=== PATIENT | female | born 1985 | race Caucasian/White ===

== ENCOUNTER 2019-06-23 09:50 | Emergency (ER) | payer OTHER, SELFPAY ==
--- NOTE | 2019-06-23 10:29 | ER ---
Nurse's Notes [facility] Name: Thea Fernández Age: 33 yrs Sex: Female : 1985 Arrival Date: 06/23/2019 Time: 09:52 Bed 13 Private MD: Diagnosis: Conjunctivitis Presentation: 06/23 10:23 Presenting complaint: Patient states: Patient states that her eyes starting swelling vc yesterday. When she woke up this morning both eyes were swollen shut and had dried drainage sealing both eyes closed. Transition of care: patient was not received from another setting of care. Onset of symptoms was June 22, 2019. Risk Assessment: Do you want to hurt yourself or someone else? Patient reports no desire to harm self or others. Initial Sepsis Screen: Does the patient meet any 2 criteria? No. Patient's initial sepsis screen is negative. Does the patient have a suspected source of infection? No. Patient's initial sepsis screen is negative. Care prior to arrival: Medication(s) given: Patient took benedryl and applied ice packs to eyes. 10:23 Acuity: JOSE 5 vc 10:23 Method Of Arrival: Ambulatory vc Triage Assessment: 10:20 General: Appears in no apparent distress. uncomfortable, Behavior is calm, cooperative. vc Pain: Complains of pain in behind right eye and behind left eye. 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 - Social history:: Smoking status: Patient/guardian denies using tobacco, never smoked. - Ebola Screening: : No symptoms or risks identified at this time. Screenin:20 Abuse screen: Denies threats or abuse. Nutritional screening: No deficits noted. vc Tuberculosis screening: No symptoms or risk factors identified. Fall Risk None identified. Assessment: 10:20 General: Appears in no apparent distress. uncomfortable. Pain: Complains of pain in vc right eye and left eye. Neuro: Level of Consciousness is awake, alert, obeys commands, Oriented to person, place, time. Cardiovascular: Capillary refill < 3 seconds Patient's skin is warm and dry. Respiratory: Respiratory effort is even, unlabored. GI: No signs and/or symptoms were reported involving the gastrointestinal system. : No deficits noted. EENT: Eyes are tearing on right eye and left eye with exudate noted from outer aspect of conjuctiva of left eye and outer aspect of conjuctiva of right eye Sclera/Cornea are reddened in right eye and left eye Lid(s) swollen. Derm: Skin is intact, is healthy with good turgor. Musculoskeletal: Range of motion: intact in all extremities. Vital Signs: 10:21 BP 146 / 93; Pulse 81; Resp 16; Temp 98.7(O); Pulse Ox 100% on R/A; Weight 58.97 kg; vc Height 5 ft. (152.40 cm); Pain 5/10; 10:21 Body Mass Index 25.39 (58.97 kg, 152.40 cm) vc ED Course: 09:52 Patient arrived in ED. as 09:56 Nancy Frank RN is Primary Nurse. vc 09:57 Giancarlo Iglesias FNP-C is PHCP. la1 09:57 Jaime Parnell MD is Attending Physician. la1 09:57 Giancarlo Iglesias FNP-C is PHCP. la1 09:57 Jaime Parnell MD is Attending Physician. la1 10:20 Arm band placed on. vc 10:21 Patient has correct armband on for positive identification. Bed in low position. Call vc light in reach. Side rails up X 1. 10:26 Triage completed. vc 10:45 No provider procedures requiring assistance completed. Patient did not have IV access vc during this emergency room visit. Administered Medications: No medications were administered Outcome: 10:28 Discharge ordered by . la1 10:48 Discharged to home ambulatory. vc 10:48 Condition: good 10:48 Discharge instructions given to patient, Instructed on discharge instructions, medication usage, Demonstrated understanding of instructions, follow-up care, medications, Prescriptions given X 1. 10:49 Patient left the ED. vc Signatures: Madelyn Mascorro as Giancarlo Iglesias FNP-C CARDROOM ATTENDANT-Cla1 Nancy Frank RN RN vc Corrections: (The following items were deleted from the chart) 10:54 10:00 General: Appears in no apparent distress. uncomfortable, Behavior is calm, vc cooperative, vc 10: 10:00 Pain: Complains of pain in behind right eye and behind left eye vc vc 10:54 10:53 Arm band placed on vc vc
--- NOTE | 2019-06-23 10:30 | EDPHYS ---
Physician Documentation [facility] Name: Thea Fernández Age: 33 yrs Sex: Female : 1985 Arrival Date: 06/23/2019 Time: 09:52 Bed 13 Private MD: ED Physician Jaime Parnell HPI: 06/23 10:20 This 33 yrs old Female presents to ER via Unassigned with complaints of la1 Drainage From Eye, Eye Swelling. 10:20 The patient is experiencing matting or discharge, redness, to both eyes. Onset: The la1 symptoms/episode began/occurred this morning. Duration: the symptoms are continuous. Aggravated by blinking, Alleviated by cold application, medications. Associated signs and symptoms: Pertinent negatives: chills, ear ache, fever. Associated signs and symptoms: Pertinent positives: headache, runny nose. Patient does not utilize any form of vision correction. Severity of symptoms: At their worst the symptoms were moderate this morning. The patient has experienced similar episodes in the past, a few times. pt reports that she woke up this morning with MAXIMO eyelid swelling, eye redness, has been taking benadryl at home and applying cold compresses, pt states that her swelling has significantly decreased since she woke up this morning, denies pain with EOM, visual acuity intact. . 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 - Social history:: Smoking status: Patient/guardian denies using tobacco, never smoked. - Ebola Screening: : No symptoms or risks identified at this time. ROS: 10:23 Constitutional: Negative for fever, chills, and weight loss, ENT: + for rhinorrhea la1 Neck: Negative for injury, pain, and swelling, Cardiovascular: Negative for chest pain, palpitations, and edema, Respiratory: Negative for shortness of breath, cough, wheezing, and pleuritic chest pain, Abdomen/GI: Negative for abdominal pain, nausea, vomiting, diarrhea, and constipation, Back: Negative for injury and pain, : Negative for injury, bleeding, discharge, and swelling, MS/Extremity: Negative for injury and deformity, Neuro: Negative for headache, weakness, numbness, tingling, and seizure, Psych: Negative for depression, anxiety, suicide ideation, homicidal ideation, and hallucinations. 10:23 Eyes: Positive for itching, matting, redness, tearing, of the outer aspect of conjuctiva of right eye, inner aspect of conjuctiva of right eye, outer aspect of conjuctiva of left eye and inner aspect of conjunctiva of left eye. Exam: 10:24 Visual Acuity: I have reviewed the nursing documentation. la1 10:24 Constitutional: This is a well developed, well nourished patient who is awake, alert, and in no acute distress. Head/Face: Normocephalic, atraumatic. 10:24 Neck: Trachea midline, no thyromegaly or masses palpated, and no cervical lymphadenopathy. Supple, full range of motion without nuchal rigidity, or vertebral point tenderness. No Meningismus. Chest/axilla: Normal chest wall appearance and motion. Nontender with no deformity. No lesions are appreciated. Cardiovascular: Regular rate and rhythm with a normal S1 and S2. No gallops, murmurs, or rubs. Normal PMI, no JVD. No pulse deficits. Respiratory: Lungs have equal breath sounds bilaterally, clear to auscultation No rales, rhonchi or wheezes noted. No increased work of breathing, no retractions or nasal flaring. Abdomen/GI: Soft, non-tender, with normal bowel sounds. No distension or tympany. No guarding or rebound. No evidence of tenderness throughout. Neuro: Awake and alert, GCS 15, oriented to person, place, time, and situation. Normal gait. 10:24 Eyes: Periorbital structures: appear normal, no cellulitis, no ecchymosis, no erythema, no swelling, Pupils: equal, round, and reactive to light and accomodation, Extraocular movements: intact throughout, Conjunctiva: chemosis, injected, bilaterally, Corneas: are normal, Lids and lashes: appear normal, bilaterally, Visual sykes: are intact. 10:24 ENT: TM's: are normal, no evidence of bulging, no dullness, no erythema, no fluid levels, no hemotympanum, no rupture, normal bony landmarks, Mouth: is normal, Posterior pharynx: Airway: normal, Tonsils: are normal in appearance, no enlargement, no erythema, no exudate, Uvula: normal, midline. Vital Signs: 10:21 BP 146 / 93; Pulse 81; Resp 16; Temp 98.7(O); Pulse Ox 100% on R/A; Weight 58.97 kg; vc Height 5 ft. (152.40 cm); Pain 5/10; 10:21 Body Mass Index 25.39 (58.97 kg, 152.40 cm) vc MDM: 09:59 Patient medically screened. la1 10:25 Data reviewed: vital signs, nurses notes, and as a result, I will discharge patient. la1 Data interpreted: Pulse oximetry: on room air is 99 %. Interpretation: normal. Test interpretation: by ED physician or midlevel provider:. Counseling: I had a detailed discussion with the patient and/or guardian regarding: the historical points, exam findings, and any diagnostic results supporting the discharge/admit diagnosis, the need for outpatient follow up, an opthalmologist, to return to the emergency department if symptoms worsen or persist or if there are any questions or concerns that arise at home. ED course: EOMs intact and not painful, no preseptal or cellulitis, no fever, pt is non-toxic in appearance, suspect allergic source but with matting and drainage will cover with abx. Pt instructed to return to ED with worsening of symptoms in the next 24 hours. . 06/23 10:20 Order name: Visual Acuity; Complete Time: 10:51 la1 Administered Medications: No medications were administered Disposition: 06/23/19 10:28 Discharged to Home. Impression: Conjunctivitis. - Condition is Stable. - Discharge Instructions: Allergic Conjunctivitis, Adult, Bacterial Conjunctivitis, Viral Conjunctivitis. - Prescriptions for Polytrim 10,000 unit- 1 mg/mL Ophthalmic drops - instill 1 drop by OPHTHALMIC route every 4 hours for 7 days To both eyes; 1 Container. - Medication Reconciliation Form, Thank You Letter, Antibiotic Education, Work release form form. - Follow up: Private Physician; When: 2 - 3 days; Reason: Recheck today's complaints, Re-evaluation by your physician. Follow up: Emergency Department; When: As needed; Reason: Fever > 102 F, Worsening of condition. - Problem is new. - Symptoms have improved. Addendum: 06/24/2019 20:51 Co-signature as Attending Physician, Jaime Parnell MD I agree with the assessment and virtua voorhees plan of care. Signatures: Jaime Parnell MD MD kdr Giancarlo Iglesias, PRINT SUPPORT SPECIALIST-C PRINT SUPPORT SPECIALIST-Cla1 Nancy Frank, RN RN vc Corrections: (The following items were deleted from the chart) 06/23 10:49 10:28 06/23/2019 10:28 Discharged to Home. Impression: Conjunctivitis. Condition is vc Stable. Forms are Medication Reconciliation Form, Thank You Letter, Antibiotic Education, Prescription Opioid Use. Follow up: Private Physician; When: 2 - 3 days; Reason: Recheck today's complaints, Re-evaluation by your physician. Follow up: Emergency Department; When: As needed; Reason: Fever > 102 F, Worsening of condition. Problem is new. Symptoms have improved. la1
== END 2019-06-23 10:49 | disposition home or self-care (01) ==
LOC: ER 09:50
DX: H10.9 Unspecified conjunctivitis (principal); Z88.1 Allergy status to other antibiotic agents
CPT/HCPCS: 99282

== ENCOUNTER 2023-07-25 18:01 | Inpatient (IN) | payer SELFPAY ==
[2023-07-25 20:22] LABS: Specific Gravity 1.022 (1.005-1.030)
[2023-07-25 20:25] LABS: Specific Gravity 1.022 (1.005-1.030); Urine Bacteria None Seen /HPF (<20); Urine Bilirubin NEGATIVE (Negative); Urine Blood Negative (Negative); Urine Clarity Extremely Turbid (Clear); Urine Color Yellow (Yellow); Urine Glucose NEGATIVE (Negative); Urine Mucus 3+ /HPF (None Seen); Urine Protein 1+ (Negative); Urine RBC <5 /HPF (None Seen); Urine Urobilinogen Normal (Normal); Urine pH 5.5 (5.0-7.0)
[2023-07-25 20:32] LABS: Absolute Lymphocytes (CBC) 0.5 K/uL (0.7-4.9); Lymphocytes % 2.5 % (15.3-44.8); MCV 83.1 fL (80-100); Platelets 204 thou/uL (152-406); RBC Red Blood Cell Count 5.17 M/uL (3.86-4.86)
[2023-07-25 20:42] LABS: Albumin 4.4 g/dL (3.4-5.0); Bilirubin Total 0.4 mg/dL (0.2-1.0); Potassium 3.7 mEq/L (3.5-5.1); Protein, Total 9.3 g/dL (6.4-8.2)
[2023-07-25] MEDS ORDERED: ONDANSETRON 4 MG/2 ML VIAL ONE (21:02)
[2023-07-25] MEDS ORDERED: NA CHLORIDE 0.9% 1,000 ML ONE ×2 (21:02→21:51)
[2023-07-25 21:09] LABS: Platelet Estimate ADEQ; White Blood Cell Scan OK (OK)
[2023-07-25 21:10] LABS: Blood Morphology Comment NOT SEEN (NOT SEEN)
--- NOTE | 2023-07-25 21:38 | RAD REPORT ---
EXAM DESCRIPTION: CT - Abdomen Pelvis W Contrast - 07/25/2023 8:46 pm CLINICAL HISTORY: ABD PAIN COMPARISON: No comparisons TECHNIQUE: Thin cut axial CT imaging of the abdomen and pelvis was performed following intravenous a dministration of 95 mL Isovue 300. Multiplanar reformats were generated and reviewed. All CT scans are performed using dose optimization technique as appropriate and may include automated exposure control or mA/KV adjustment according to patient size. FINDINGS: No suspicious findings in the lung bases. The liver demonstrates a hyperenhancing, ovoid, subcapsular 2.3 x 1.9 cm mass with central hypoenhanc ement. A lobulated left liver lobe well-circumscribed fluid density 1.7 cm cyst is also noted. Adrena l glands, spleen, and pancreas show no suspicious findings. Gallbladder and biliary tree are also wit hout suspicious finding. Symmetric renal function is seen with no hydronephrosis or suspicious renal mass. Left upper pole cor tical 1 cm fluid density cyst. 4 mm right lower renal pole nonobstructing calculus. No dilated bowel loops or bowel wall thickening. Appendix is unremarkable. Nonspecific fluid opacific ation throughout some of the small bowel loops and the ascending colon. No free air, free fluid or in flammatory stranding. No hernia, mass or bulky lymphadenopathy. Retroverted uterus. The urinary bladd er is suboptimally distended limiting evaluation. . No suspicious bony findings. IMPRESSION: Nonobstructing right lower renal pole 4 mm calculus. Nonspecific fluid opacification within some loops of distal small bowel and the ascending colon, find ings which may relate to diarrheal state. Incidental note made of a 2.3 cm hepatic dome hyperenhancing ovoid lesion, not well characterized on this single-phase exam. Additional characterization by hepatic mass protocol would be helpful, if cli nically indicated. Other incidental findings as above.
--- NOTE | 2023-07-25 21:47 | EDPHYS ---
Physician Documentation [facility] Name: Thea Fernández Age: 37 yrs Sex: Female : 1985 Arrival Date: 07/25/2023 Time: 18:01 Bed 6 Private MD: ED Physician Jesus Manuel Amaro HPI: 07/25 19:24 This 37 yrs old Female presents to ER via Ambulatory with complaints of ec2 Nausea/Vomiting/Diarrhea, Abdominal Pain. 19:24 Patient arrives today due to concern for nausea, vomiting, diarrhea. States that she ec2 been having symptoms for ongoing for 2 days. Reports no fevers or chills, denies any cough or cold symptoms or urinary complaints. Patient reports some general abdominal pain worse in the bilateral lower quadrants.. 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 - Social history:: Smoking status: Patient denies any tobacco usage or history of. ROS: 19:24 Constitutional: as per hpi ec2 Exam: 19:24 Constitutional: GEN: NAD Head: atraumatic Eyes: EOMI Ears: External ears are ec2 normal. CV: Mild tachycardia LUNGS: no respiratory distress ABD: non-distended, soft, nontender, not guarding, not rigid SKIN: no evidence of rashes MSK: no evidence of trauma NEURO: moves all extremities equally Vital Signs: 19:16 BP 145 / 97; Pulse 101; Resp 18; Temp 98.5; Pulse Ox 100% ; Weight 59.87 kg; Height 4 vc1 ft. 11 in. ; Pain 8/10; 21:22 BP 133 / 92; Pulse 92; Resp 16; Pulse Ox 99% on R/A; tl4 22:39 BP 136 / 94; Pulse 86; Resp 18; Pulse Ox 100% on R/A; tl4 19:16 Body Mass Index 26.66 (59.87 kg, 149.86 cm) vc1 19:16 Pain Scale: Adult vc1 MDM: 19:17 Patient medically screened. ec2 19:24 Data reviewed: vital signs. ED course: Patient arrives today for evaluation of nausea, ec2 vomiting, diarrhea. Examination remarkable for well-appearing nontoxic individual is otherwise in no acute distress with a reassuring examination. Will obtain lab work, viral swabs, CT imaging. Will reassess after crystalloid and antiemetic.. 20:00 Transition of care: After a detail discussion of the patient's case, care is ec2 transferred to Jesus Manuel Amaro MD. 20:01 ED course: Patient signed out to oncoming physician with pending lab work and imaging.. ec2 21:45 ED course: Patient signed out to me by Dr. Bautista. Patient is a 37-year-old female with sp3 gastroenteritis and leukocytosis with left shift. Due to her allergies, I have started cefepime IV and started IV fluids. Lactate is also been ordered. UA demonstrates hyaline casts and patient is likely dehydrated. Further per inpatient team.. 07/25 19:23 Order name: CBC with Diff; Complete Time: 21:41 ec2 07/25 19:23 Order name: CMP; Complete Time: 21:41 ec2 07/25 19:23 Order name: Lipase; Complete Time: 21:41 ec2 07/25 19:23 Order name: Test, Urine; Complete Time: 21:41 ec2 07/25 19:23 Order name: Urinalysis w/ reflexes; Complete Time: 21:41 ec2 07/25 19:23 Order name: SARS-COV-2 RT PCR; Complete Time: 21:41 ec2 07/25 19:23 Order name: Influenza Screen (a \T\ B); Complete Time: 21:41 ec2 07/25 20:28 Order name: Urine Culture EDMS 07/25 21:10 Order name: CBC Smear Scan; Complete Time: 21:41 EDMS 07/25 21:43 Order name: Lactate w/ 2H reflex if indic.; Complete Time: 07:33 sp3 07/26 00:04 Order name: CBC with Automated Diff EDMS 07/26 00:04 Order name: CBC with Automated Diff EDMS 07/26 00:04 Order name: Comprehensive Metabolic Panel EDMS 07/26 00:04 Order name: Comprehensive Metabolic Panel EDMS 07/25 19:23 Order name: CT Abd/Pelvis - IV Contrast Only; Complete Time: 21:41 ec2 07/25 19:23 Order name: IV Saline Lock; Complete Time: 20:12 ec2 07/25 19:23 Order name: Labs collected and sent; Complete Time: 20:12 ec2 Administered Medications: 21:08 Drug: NS 0.9% IV 1000 ml IV at 1 bolus Per protocol; 1000 mL bolus Route: IV; Rate: 1 tl4 bolus; Site: left antecubital; 22:53 Follow up: Response: No adverse reaction; IV Status: Completed infusion; IV Intake: tl4 1000ml 21:08 Drug: Ondansetron IVP 4 mg IVP once; over 2 minutes Route: IVP; Infused Over: 2 mins; tl4 Site: left antecubital; 22:54 Follow up: Response: No adverse reaction tl4 22:04 Drug: NS 0.9% IV 1000 ml IV at 1 bolus Per protocol; 1000 mL bolus Route: IV; Rate: 1 tm6 bolus; Site: left antecubital; 22:43 Follow up: Response: No adverse reaction; IV Status: Completed infusion; IV Intake: tl4 1000ml 22:09 Drug: Cefepime IVPB 2 grams IVPB at 200 ml/hr once over 30 mins; (mix in NS 100 mL) tm6 Route: IVPB; Rate: 200 ml/hr; Infused Over: 30 mins; Site: left antecubital; 22:43 Follow up: Response: No adverse reaction; IV Status: Completed infusion; IV Intake: tl4 100ml Disposition Summary: 07/25/23 21:46 Hospitalization Ordered Notes: Hospitalization Status: Observation sp3 Provider: Jaswant Norris sp3 Condition: Stable sp3 Problem: an acute exacerbation sp3 Symptoms: have worsened sp3 Bed/Room Type: Standard sp3 Location: Telemetry/MedSurg (observation)(07/26/23 07:11) eb Room Assignment: 217(07/26/23 07:11) eb Diagnosis - Gastroenteritis, sepsis, dehydration sp3 Forms: - Medication Reconciliation Form sp3 - SBAR form sp3 - Leadership Thank You Letter sp3 Signatures: Dispatcher [employer] EDJodie Callaway RN RN cg Botello, Elizabeth eb Patel, Setul, MD MD sp3 Nancy Frank RN RN vc1 Jarek Bautista MD MD ec2 Sarah Orellana RN RN tm6 Tim Asher 4 Corrections: (The following items were deleted from the chart) 23: 21:46 Telemetry/MedSurg (observation) sp3 23: 21:46 3 07/26 07:11 07/25 23:02 [facility] 07/26 07:07/25 23:02 [facility]
--- NOTE | 2023-07-25 21:47 | ER ---
Nurse's Notes [facility] Name: Thea Fernández Age: 37 yrs Sex: Female : 1985 Arrival Date: 07/25/2023 Time: 18:01 Bed 6 Private MD: Diagnosis: Gastroenteritis, sepsis, dehydration Presentation: 07/25 19:16 Chief complaint: Patient states: I've been throwing up and have diarrhea for the last 2 vc1 days with abdominal pain. Coronavirus screen: Client denies travel out of the [place] in the last 14 days. chills, diarrhea, fatigue, fever, headache, muscle pain, nausea, vomiting. Client presents with at least one sign or symptom that may indicate coronavirus-19. Ebola Screen: Patient negative for fever greater than or equal to 101.5 degrees Fahrenheit, and additional compatible Ebola Virus Disease symptoms Patient denies exposure to infectious person. Patient denies travel to an Ebola-affected area in the 21 days before illness onset. No symptoms or risks identified at this time. Initial Sepsis Screen: Does the patient meet any 2 criteria? No. Patient's initial sepsis screen is negative. Does the patient have a suspected source of infection? No. Patient's initial sepsis screen is negative. Risk Assessment: Do you want to hurt yourself or someone else? Patient reports no desire to harm self or others. Onset of symptoms was July 23, 2023. 19:16 Method Of Arrival: Ambulatory vc1 19:16 Acuity: JOSE 3 vc1 Triage Assessment: 19:23 General: Appears in no apparent distress. uncomfortable, ill, Behavior is calm, vc1 cooperative, appropriate for age. Pain: Complains of pain in left low back and right lower quadrant Pain does not radiate. Pain Quality of pain is described as crampy, dull, sharp, Pain began 2-3 days ago. Is intermittent, Aggravated by eating, drinking, increased activity, repositioning. Neuro: No deficits noted. Cardiovascular: No deficits noted. Respiratory: Reports shortness of breath. GI: Reports lower abdominal pain, cramping, diarrhea, intolerance of fluids, intolerance of food, nausea, vomiting. : Reports inability to void. [employer]: 19:25 LMP 07/09/2022, unknown vc1 Historical: - Allergies: 19:18 Keflex; vc1 19:18 Levaquin; vc1 19:18 Ciprofloxacin; vc1 - PMHx: 19:18 Kidney stones; Bipolar disorder; PTSD; Anxiety; vc1 - PSHx: 19:18 Tubal Ligation; vc1 - Immunization history:: Client reports receiving the 2nd dose of the Covid vaccine, Flu vaccine is not up to date. - Social history:: Smoking status: Patient denies any tobacco usage or history of. Screenin:24 [facility] ED Fall Risk Assessment (Adult) History of falling in the last 3 months, tl4 including since admission No falls in past 3 months (0 pts) Confusion or Disorientation No (0 pts) Intoxicated or Sedated No (0 pts) Impaired Gait No (0 pts) Mobility Assist Device Used No (0 pt) Altered Elimination No (0 pt) Score/Fall Risk Level 0 - 2 = Low Risk Oriented to surroundings, Maintained a safe environment, Educated pt \T\ family on fall prevention, incl call for assistance when getting out of bed, Assessed \T\ reinforced patient's understanding of fall precautions, Provided non-skid footwear. Abuse screen: Denies threats or abuse. Denies injuries from another. Nutritional screening: No deficits noted. Tuberculosis screening: No symptoms or risk factors identified. Assessment: 21:22 General: Appears in no apparent distress. Behavior is calm, cooperative. Pain: tl4 Complains of pain in lower back and lower abdomen. Neuro: No deficits noted. Cardiovascular: No deficits noted. Denies chest pain, diaphoresis, lightheadedness, palpitations. Respiratory: No deficits noted. Denies cough, shortness of breath. GI: Abdomen is flat, Abd is soft X 4 quads Abdomen is tender to palpation in right lower quadrant and left lower quadrant. : No deficits noted. No signs and/or symptoms were reported regarding the genitourinary system. 07/26 07:34 Reassessment: attempted to call report. nurse did not answer. Notified charge nurse on ld1 med surg. Vital Signs: 07/25 19:16 BP 145 / 97; Pulse 101; Resp 18; Temp 98.5; Pulse Ox 100% ; Weight 59.87 kg; Height 4 vc1 ft. 11 in. ; Pain 8/10; 21:22 BP 133 / 92; Pulse 92; Resp 16; Pulse Ox 99% on R/A; tl4 22:39 BP 136 / 94; Pulse 86; Resp 18; Pulse Ox 100% on R/A; tl4 19:16 Body Mass Index 26.66 (59.87 kg, 149.86 cm) vc1 19:16 Pain Scale: Adult vc1 ED Course: 18:04 Patient arrived in ED. mg5 18:20 Jarek Bautista MD is Attending Physician. ec2 19:18 Triage completed. vc1 19:25 Arm band placed on right wrist. vc1 20:01 Attending Physician role handed off by Jarek Bautista MD ec2 20:01 Jesus Manuel Amaro MD is Attending Physician. ec2 20:12 Influenza Screen (a \T\ B) Sent. rv1 20:12 SARS-COV-2 RT PCR Sent. rv1 20:12 CBC with Diff Sent. rv1 20:12 CMP Sent. rv1 20:12 Lipase Sent. rv1 20:12 Test, Urine Sent. rv1 20:12 Urinalysis w/ reflexes Sent. rv1 20:13 Inserted saline lock: 22 gauge in left antecubital area, using aseptic technique. Blood rv1 collected. 20:48 CT Abd/Pelvis - IV Contrast Only In Process Unspecified. EDMS 21:46 Jaswant Norris MD is Hospitalizing Provider. sp3 22:04 Lactate w/ 2H reflex if indic. Sent. tm6 23:00 Patient admitted, IV remains in place. tm6 07/26 02:28 Bed in low position. Call light in reach. Provided Education on: plan of care. tm6 02:28 No provider procedures requiring assistance completed. tm6 Administered Medications: 07/25 21:08 Drug: NS 0.9% IV 1000 ml IV at 1 bolus Per protocol; 1000 mL bolus Route: IV; Rate: 1 tl4 bolus; Site: left antecubital; 22:53 Follow up: Response: No adverse reaction; IV Status: Completed infusion; IV Intake: tl4 1000ml 21:08 Drug: Ondansetron IVP 4 mg IVP once; over 2 minutes Route: IVP; Infused Over: 2 mins; tl4 Site: left antecubital; 22:54 Follow up: Response: No adverse reaction tl4 22:04 Drug: NS 0.9% IV 1000 ml IV at 1 bolus Per protocol; 1000 mL bolus Route: IV; Rate: 1 tm6 bolus; Site: left antecubital; 22:43 Follow up: Response: No adverse reaction; IV Status: Completed infusion; IV Intake: tl4 1000ml 22:09 Drug: Cefepime IVPB 2 grams IVPB at 200 ml/hr once over 30 mins; (mix in NS 100 mL) tm6 Route: IVPB; Rate: 200 ml/hr; Infused Over: 30 mins; Site: left antecubital; 22:43 Follow up: Response: No adverse reaction; IV Status: Completed infusion; IV Intake: tl4 100ml Medication: 07/26 02:28 VIS not applicable for this client. tm6 Intake: 07/25 22:43 IV: 1000ml; Total: 1000ml. tl4 22:43 IV: 100ml; Total: 1100ml. tl4 22:53 IV: 1000ml; Total: 2100ml. tl4 Outcome: 21:46 Decision to Hospitalize by Provider. sp3 23:00 Admitted to ER Hold. Please see [facility] for further documentation. tm6 23:00 Condition: stable 23:00 Instructed on the need for admit, 07/26 08:17 Patient left the ED. ld1 Signatures: Dispatcher [employer] Beryl Tirado RN RN ld1 Jesus Manuel Amaro MD MD sp3 Nancy Frank RN RN 1 Niocl Sumner Evelyne Irving mg5 Jarek Bautista MD MD ec2 Sarah Orellana RN RN tm6 Tim Asher tl4
[2023-07-25] MEDS ORDERED: CEFEPIME 2 GM VIAL ONE (21:51)
[2023-07-25] MEDS ORDERED: NA CHLORIDE 0.9% 100 ML ONE (21:51)
[2023-07-25] MEDS: NA CHLORIDE 0.9% 1,000 ML IV SCH (23:45)
[2023-07-25] MEDS ORDERED: ONDANSETRON 4 MG/2 ML VIAL IV PRN (23:56)
--- NOTE | 2023-07-25 23:56 | P.HP ---
Certification for Inpatient Patient admitted to: Inpatient With expected LOS: >2 Midnights Practitioner: I am a practitioner with admitting privileges, knowledge of patient current condition, hospital course, and medical plan of care. Services: Services provided to patient in accordance with Admission requirements found in Title 42 Section 412.3 of the Code of Federal Regulations Patient History Date of Service: 07/26/23 Reason for admission: Abdominal pain, gastroenteritis. History of Present Illness: Significant patient with no significant medical history who came to the e mergency room complaining of abdominal pain with nausea vomiting and diarrhea. Pain is rated 8 out of 10 in intensity located in the mid abdomen region with associated diarrhea. No bloody stool. She had nausea with vomiting episode. She woke up in ED and found to have elevated white cells 19,000, had acute kidney injury and CT finding of liver mass, kidney stone and finding of gastroenteritis. She was started on broad-spectrum antibiotic therapy, pain control medication IV fluid and she was admitted for inpatient care. Allergies cephalexin monohydrate [From Keflex] Allergy (Unverified 07/06/15 17:58) Unknown ciprofloxacin [From Cipro] Allergy (Unverified 07/06/15 17:58) Unknown ciprofloxacin HCl [From Cipro] Allergy (Unverified 07/06/15 17:58) Unknown cephalexin [Cephalexin] Adverse Reaction (Intermediate, Verified 10/09/11 14:47) Nausea/Vomiting Review of Systems General: Fever, Malaise Eyes: Unremarkable ENT: Unremarkable Respiratory: Unremarkable Cardiovascular: Unremarkable Gastrointestinal: Nausea, Vomiting, Abdominal Pain, Diarrhea Genitourinary: Unremarkable Musculoskeletal: Unremarkable Integumentary: Unremarkable Neurological: Unremarkable Lymphatics: Unremarkable Physical Examination - Physical Exam General: Alert, Oriented x3 HEENT: Atraumatic, Normocephalic Neck: Supple Respiratory: Normal air movement Cardiovascular: Regular rate/rhythm, Normal S1 S2 Gastrointestinal: Soft and benign Musculoskeletal: No swelling Neurological: Normal speech, Normal strength at 5/5 x4 extr - Studies Laboratory Data (last 24 hrs) 07/25/23 07/25/23 20:06 20:06 WBC 19.30 H Hgb 14.3 Hct 43.0 Plt Count 204 Sodium 139 Potassium 3.7 BUN 14 Creatinine 1.09 H Glucose 103 Total Bilirubin 0.4 AST 23 ALT 25 Alkaline Phosphatase 82 Lipase 34 Microbiology Data (last 24 hrs): 07/25/23 20:06 Nasopharnyx Influenza Type A Antigen Screen - Final 07/25/23 20:06 Nasopharnyx Influenza Type B Antigen Screen - Final Assessment and Plan - Plan Gastroenteritis: Patient does have significant findings of gastroenteritis on CT of the abd omen/pelvis and clinically. She also has a liver mass and a kidney stone. Will continue empiric antibiotic Flagyl for gastroenteritis management. Continue as needed pain control with Tylenol. Continue IV support with isotonic normal saline. Zofran on board for nausea/vomiting episode. Liver mass: Liver mass found in the dome of the liver about 2 cm. Discussion with patient for outpatient follow-up made. Kidney stone: Asymptomatic kidney stone found on CT of the abdomen/pelvis. Continue pain control with Tylenol and advance pain management as needed. Patient informed of finding. Prophylaxis: Lovenox for DVT prophylaxis CODE STATUS: Full code Disposition: We will treat her gastroenteritis episode and she will be discharged when she is deemed clinically stable. - Advance Directives Does patient have a Living Will: No Does patient have a Durable POA for Healthcare: No
[2023-07-26] MEDS ORDERED: LITHIUM CARBONATE 300 MG CAP ONE (00:37)
[2023-07-26] MEDS ORDERED: METRONIDAZOLE 500mg IVPB 500 MG/100 ML BAG IV ONE (00:38)
[2023-07-26] MEDS ORDERED: QUETIAPINE 100MG TAB ONE (00:47)
[2023-07-26] MEDS ORDERED: BUSPIRONE HCL 5 MG TABLET ONE (00:47)
[2023-07-26] MEDS: METRONIDAZOLE 500mg IVPB 500 MG/100 ML BAG IV SCH ×3 (01:00→16:41)
[2023-07-26] MEDS: BUSPIRONE HCL 5 MG TABLET PO SCH ×2 (01:03→21:00)
[2023-07-26] MEDS: LITHIUM CARBONATE 300 MG CAP PO SCH ×2 (01:04→21:00)
[2023-07-26] MEDS: QUETIAPINE 100MG TAB PO SCH ×2 (01:04→21:00)
[2023-07-26] MEDS ORDERED: NA CHLORIDE 0.9% 1,000 ML ONE (02:09)
[2023-07-26 02:29] VITALS: BMI 26.4
[2023-07-26] MEDS ORDERED: ONDANSETRON 4 MG/2 ML VIAL ONE (02:58)
[2023-07-26] MEDS ORDERED: ACETAMINOPHEN 325 MG TABLET ONE (02:59)
[2023-07-26] MEDS: ACETAMINOPHEN 325 MG TABLET PO PRN ×2 (03:04→13:51)
[2023-07-26] MEDS: ENOXAPARIN 40 MG/0.4 ML SQ SCH (08:58)
[2023-07-26] MEDS ORDERED: CIPROFLOXACIN 400mg IV 400 MG/200 ML BAG IV SCH (09:00)
[2023-07-26] MEDS: NA CHLORIDE 0.9% 1,000 ML IV SCH ×2 (09:45→13:51)
--- NOTE | 2023-07-26 12:07 | P.PN ---
Subjective Date of Service: 07/26/23 Chief Complaint: Abdominal pain, gastroenteritis. Pt is resting comfortably in bed. She denies any vomiting or diarrhea since admission but reports CVA tenderness. CT abd shows gastroenteritis, liver mass and kidney stone. Physical Examination - Vital Signs Temperature: 97.4 F Blood Pressure: 105/69 Pulse: 73 Respirations: 16 Pulse Ox (%): 99 - Studies Laboratory Data (last 24 hrs) 07/25/23 07/25/23 20:06 20:06 WBC 19.30 H Hgb 14.3 Hct 43.0 Plt Count 204 Sodium 139 Potassium 3.7 BUN 14 Creatinine 1.09 H Glucose 103 Total Bilirubin 0.4 AST 23 ALT 25 Alkaline Phosphatase 82 Lipase 34 Microbiology Data (last 24 hrs): 07/25/23 20:06 Nasopharnyx Influenza Type A Antigen Screen - Final 07/25/23 20:06 Nasopharnyx Influenza Type B Antigen Screen - Final Assessment And Plan - Plan Acute Gastroenteritis: CT abd /pelvis shows gastroenteritis. Will continue Cipro, flagyl, zofran, and IVF. CT of the abdomen/pelvis shows nonobstructing right lower renal pole 4 mm calculus. Nonspecific fluid opacification within some loops of distal small bowel and the ascending colon, findings which may relate to diarrheal state. Incidental note made of a 2.3 cm hepatic dome hyperenhancing ovoid lesion, not well characterized on this single-phase exam. Additional characterization by hepatic mass protocol would be helpful, if clinically indicated 4 mm right lower pole calculus: Will continue IVF, flomax and strain the urine. Pt has CVA tenderness Nausea/ Vomiting: Will continue IVF and prn zofran 2.3 com liver mass: Per Ct abd abd. It is located in th ehpatic dome. Pt will follow up with Oncologist in clinic. DVT ppx: Lovenox CODE STATUS: Full code Dispo: Pending hospital course.
[2023-07-26] MEDS: TAMSULOSIN 0.4 MG SR CAP PO SCH (13:25)
[2023-07-27 04:30] LABS: Hematocrit 33.2 % (36.0-45.0); Lymphocytes % 33.4 % (15.3-44.8); MCV 83.4 fL (80-100); MPV 8.9 fL (7.6-11.3); Platelets 146 thou/uL (152-406); RBC Red Blood Cell Count 3.98 M/uL (3.86-4.86)
[2023-07-27 04:39] LABS: Albumin 2.8 g/dL (3.4-5.0); Bilirubin Total 0.3 mg/dL (0.2-1.0); Magnesium 2.4 mg/dL (1.6-2.4); Potassium 3.7 mEq/L (3.5-5.1)
[2023-07-27] MEDS: NA CHLORIDE 0.9% 1,000 ML IV SCH ×3 (05:45→15:45)
--- NOTE | 2023-07-27 08:36 | P.PN ---
Subjective Date of Service: 07/27/23 Chief Complaint: Abdominal pain, gastroenteritis. Pt is resting comfortably in bed. She denies any vomiting or diarrhea since admission but reports CVA tenderness, mostly on the right.. CT abd shows gastroenteritis, liver mass and kidney stone. No other complaints Review of Systems Unremarkable General: Unremarkable Eyes: Unremarkable ENT: Unremarkable Respiratory: Unremarkable Cardiovascular: Unremarkable Gastrointestinal: Unremarkable Genitourinary: Unremarkable Musculoskeletal: Unremarkable Integumentary: Unremarkable Neurological: Unremarkable Lymphatics: Unremarkable Physical Examination - Vital Signs Temperature: 97.3 F Blood Pressure: 111/70 Pulse: 74 Respirations: 14 Pulse Ox (%): 97 Assessment And Plan - Plan Acute Gastroenteritis: CT abd /pelvis shows gastroenteritis. Will continue Cipro, flagyl, zofran, and IVF. WBC 2.9 <- 19.3 CT of the abdomen/pelvis shows nonobstructing right lower renal pole 4 mm calculus. Nonspecific fluid opacification within some loops of distal small bowel and the ascending colon, findings which may relate to diarrheal state. Incidental note made of a 2.3 cm hepatic dome hyperenhancing ovoid lesion, not well characterized on this single-phase exam. Additional characterization by hepatic mass protocol would be helpful, if clinically indicated 4 mm right lower pole calculus: Will continue IVF, flomax and strain the urine. Pt has bilateral CVA tenderness ( R > L) Nausea/ Vomiting: Will continue IVF and prn zofran 2.3 com liver mass: Per Ct abd abd. It is located in the hepatic dome. Pt will follow up with Oncologist in clinic. DVT ppx: Lovenox CODE STATUS: Full code Dispo: Pending hospital course.
[2023-07-27] MEDS: METRONIDAZOLE 500mg IVPB 500 MG/100 ML BAG IV SCH ×3 (08:49→18:00)
[2023-07-27] MEDS: TAMSULOSIN 0.4 MG SR CAP PO SCH (08:49)
[2023-07-27] MEDS: ENOXAPARIN 40 MG/0.4 ML SQ SCH (08:49)
[2023-07-27] MEDS ORDERED: POTASSIUM CL SA 10 MEQ TAB PO ONE (09:00)
[2023-07-27] MEDS: BUSPIRONE HCL 5 MG TABLET PO SCH (20:55)
[2023-07-27] MEDS: QUETIAPINE 100MG TAB PO SCH (20:55)
[2023-07-27] MEDS: LITHIUM CARBONATE 300 MG CAP PO SCH (20:56)
[2023-07-27 22:13] VITALS: O2SAT 96
[2023-07-28] MEDS: NA CHLORIDE 0.9% 1,000 ML IV SCH ×2 (00:02→01:45)
[2023-07-28] MEDS: METRONIDAZOLE 500mg IVPB 500 MG/100 ML BAG IV SCH ×2 (00:03→08:42)
[2023-07-28 06:57] LABS: Absolute Lymphocytes (CBC) 0.9 K/uL (0.7-4.9); MCV 83.1 fL (80-100); MPV 8.7 fL (7.6-11.3); Platelets 150 thou/uL (152-406); RBC Red Blood Cell Count 3.98 M/uL (3.86-4.86)
[2023-07-28 07:13] LABS: Potassium 3.6 mEq/L (3.5-5.1)
[2023-07-28] MEDS: TAMSULOSIN 0.4 MG SR CAP PO SCH (08:42)
[2023-07-28] MEDS: ENOXAPARIN 40 MG/0.4 ML SQ SCH (08:42)
[2023-07-28] MEDS ORDERED: CEFTRIAXONE 1,000 MG in NA CHLORIDE 0.9% 50 ML IVPB SCH (09:00)
[2023-07-28] MEDS ORDERED: POTASSIUM CL SA 10 MEQ TAB PO ONE (09:00)
--- NOTE | 2023-07-28 10:31 | P.PN ---
Subjective Date of Service: 07/28/23 Chief Complaint: Abdominal pain, gastroenteritis. Pt is resting comfortably in bed. She denies any vomiting or diarrhea since admission. The right CVa tenderness has improved. CT abd shows gastroenteritis, liver mass and kidney stone. No other complaints Review of Systems Unremarkable General: Unremarkable Eyes: Unremarkable ENT: Unremarkable Respiratory: Unremarkable Cardiovascular: Unremarkable Gastrointestinal: Unremarkable Genitourinary: Unremarkable Musculoskeletal: Unremarkable Integumentary: Unremarkable Neurological: Unremarkable Lymphatics: Unremarkable Physical Examination - Vital Signs Temperature: 97.3 F Blood Pressure: 111/73 Pulse: 78 Respirations: 16 Pulse Ox (%): 97 - Physical Exam General: Alert, In no apparent distress, Oriented x3 HEENT: Atraumatic, Normocephalic, PERRLA Neck: Supple, 2+ carotid pulse no bruit Respiratory: Clear to auscultation bilaterally, Normal air movement Cardiovascular: No edema, Normal pulses, Regular rate/rhythm, Normal S1 S2 Capillary refill: <2 Seconds Gastrointestinal: Normal bowel sounds, Soft and benign, Non-distended, Other (slight right CVA tenderness) Musculoskeletal: No clubbing, No swelling Integumentary: No rashes, No breakdown Neurological: Normal gait, Normal speech Lymphatics: No axilla or inguinal lymphadenopathy - Studies Microbiology Data (last 24 hrs): 07/25/23 20:06 Clean Catch Urine [place] Count - Final >100,000 CFU/ML. 07/25/23 20:06 Clean Catch Urine - Final Escherichia Coli Assessment And Plan - Plan Acute Gastroenteritis: CT abd /pelvis shows gastroenteritis. Will continue rocephin, flagyl, zofran, and IVF. WBC 2.9 <- 19.3 CT of the abdomen/pelvis shows nonobstructing right lower renal pole 4 mm calculus. Nonspecific fluid opacification within some loops of distal small bowel and the ascending colon, findings which may relate to diarrheal state. Incidental note made of a 2.3 cm hepatic dome hyperenhancing ovoid lesion, not well characterized on this single-phase exam. Additional characterization by hepatic mass protocol would be helpful, if clinically indicated UTI: Will continue rocephin and follow up urine cx. 4 mm right lower pole calculus: Will continue IVF, flomax and strain the urine. Pt has bilateral CVA tenderness ( R > L) Nausea/ Vomiting: Will continue IVF and prn zofran 2.3 cm liver mass: Per CT abd abd. It is located in the hepatic dome. Pt will follow up with Oncologist in clinic. DVT ppx: Lovenox CODE STATUS: Full code Dispo: Pending hospital course.
--- NOTE | 2023-07-28 10:40 | P.DS ---
Admission Date: 07/25/23 Discharge Date: 07/28/23 Disposition: ROUTINE DISCHARGE Discharge Condition: GOOD Reason for Admission: Abdominal pain, gastroenteritis. Brief History of Present Illness: Significant patient with no significant medical history who came to the emergency room complaining of abdominal pain with nausea vomiting and diarrhea. Pain is rated 8 out of 10 in intensity located in the mid abdomen region with associated diarrhea. No bloody stool. She had nausea with vomiting episode. She woke up in ED and found to have elevated white cells 19,000, had acute kidney injury and CT finding of liver mass, kidney stone and finding of gastroenteritis. She was started on broad-spectrum antibiotic therapy, pain control medication IV fluid and she was admitted for inpatient care. Hospital Course: Pt is a 37 yo female who presented with abdominal pain, nausea and vomiting due to gastroenteritis. CT abd showed gastroenteritis. We continued Cipro, flagyl, zofran, and IVF. Leukocytosis resolved (WBC 2.9 <- 19.3). Urinalysis showed evidence of UTI. Urine culture grew E. coli sensitive to cipro. We continued abx. CT abd also showed 4 mm right lower pole calculus. We continue IVF, flomax and strained the urine to check for kidney stone. Pt had bilateral CVA tenderness ( R > L). We advised her to follow up with Urologist in clinic. The CT abd showed 2.3 cm liver mass in the hepatic dome. Pt will follow up with Oncologist in clinic. We continued prn antiemetic for nausea and vomiting. The symptoms resolved and pt was discharged with cipro and flagy. . Vital Signs/Physical Exam: Temp Pulse Resp BP Pulse Ox 97.3 F 78 16 111/73 97 07/28/23 10:31 07/28/23 10:31 07/28/23 10:31 07/28/23 10:31 07/28/23 10:31 Laboratory Data at Discharge: WBC 3.00 thou/uL (4.3-10.9) L 07/28/23 06:38 Hgb 11.2 g/dL (12.0-15.0) L 07/28/23 06:38 Hct 33.0 % (36.0-45.0) L 07/28/23 06:38 Plt Count 150 thou/uL (152-406) L 07/28/23 06:38 Sodium 142 mEq/L (136-145) 07/28/23 06:38 Potassium 3.6 mEq/L (3.5-5.1) 07/28/23 06:38 BUN 9 mg/dL (7-18) 07/28/23 06:38 Creatinine 0.66 mg/dL (0.55-1.02) 07/28/23 06:38 Glucose 96 mg/dL (74-106) 07/28/23 06:38 Magnesium 2.4 mg/dL (1.6-2.4) 07/27/23 03:44 Total Bilirubin 0.3 mg/dL (0.2-1.0) 07/27/23 03:44 AST 15 U/L (15-37) 07/27/23 03:44 ALT 15 U/L (13-56) 07/27/23 03:44 Alkaline Phosphatase 52 U/L (45-117) 07/27/23 03:44 Lipase 34 U/L (13-75) 07/25/23 20:06 Home Medications: Buspirone HCl [Buspar] 10 mg PO TID 07/26/23 [place] Carbonate [Lithotabs *] 600 mg PO BID 07/26/23 Quetiapine Fumarate [Seroquel] 500 mg PO BEDTIME 07/26/23 Trazodone [Desyrel*] 50 mg PO BEDTIME 07/26/23 Ciprofloxacin HCl [Cipro] 500 mg PO DAILY 4 Days #4 tab 07/28/23 Tamsulosin [Flomax*] 0.4 mg PO DAILY 14 Days #14 cap 07/28/23 metroNIDAZOLE [Flagyl] 500 mg PO Q8H 4 Days #12 tab 07/28/23 New Medications: Ciprofloxacin HCl [Cipro] 500 mg PO DAILY 4 Days #4 tab metroNIDAZOLE [Flagyl] 500 mg PO Q8H 4 Days #12 tab Tamsulosin [Flomax*] 0.4 mg PO DAILY 14 Days #14 cap Physician Discharge Instructions: Continue ad jeremy activity. Take Cipro and flagyl for the next 4 days. Take flomax 0.4mg po daily for 2 weeks. Continue other home meds. Strain your urine to check for kidney stones. Follow up with PCP and Urology within 1 - 2 weeks. Follow up with Dr. Osorio in clinic for 2.3 cm liver mass. Diet: Regular Activity: Ad jeremy Followup: NONE,NONE [Primary Care Provider] - Paras Villa [ACTIVE - CAN ADMIT] - Kayleigh Smith MD [ACTIVE - CAN ADMIT] -
[2023-07-28 13:21] VITALS: BP 142/94; TEMP 97.6
== END 2023-07-28 13:20 | disposition home or self-care (01) | DRG 683 ==
LOC: ER 18:01 → ERHOLD 23:56 → 2ND 07-26 07:55
PROVIDERS: ADMIT Internal Medicine Nephrology; ATTEND Hospitalist
DX: N17.9 Acute kidney failure, unspecified (principal); N39.0 Urinary tract infection, site not specified; N20.0 Calculus of kidney; K52.9 Noninfective gastroenteritis and colitis, unspecified; B96.20 Unspecified Escherichia coli [E. coli] as the cause of diseases classified elsewhere; R16.0 Hepatomegaly, not elsewhere classified; Z88.1 Allergy status to other antibiotic agents; Z11.52 Encounter for screening for COVID-19
CPT/HCPCS: 36415; 74177; 80048; 80053; 81001; 81025; 83605; 83690; 83735; 85025; 87077; 87086; 87088; 87186; 87635; 87804; 96361; 96365; 96375; 99285; J0692; J0696; J1650; J2405; J7030; Q9967